=== PATIENT | female | born 1970 ===

== ENCOUNTER 2024-05-01 19:22 | Emergency (ER) | payer BC, SELFPAY ==
[2024-05-01 19:25] VITALS: BP 169/92
[2024-05-01 19:47] LABS: % Basophils 0.5 % (0-2); % Eosinophils 1.1 % (0-6); % Immature Granulocytes 0.3 % (0-0.5); % Lymphocytes 39.2 % (20.5-51.1); % Monocytes 5.4 % (1.7-9.3); % Neutrophils 53.5 % (42.2-75.2); Absolute Eosinophils 0.1 10^3/uL (0-0.7); Absolute Lymphocytes 2.9 10^3/uL (1.2-3.4); Absolute Monocytes 0.4 10^3/uL (0.1-0.6); Hematocrit 41.9 % (37.0-47.0); Hemoglobin 14.7 g/dL (12.0-16.0); Mean Corp Hgb Conc. 35.1 g/dL (33.0-37.0); Mean Corpuscular Hgb 33.3 pg (27.0-31.0); Mean Corpuscular Volume 94.8 fL (81.0-99.0); Mean Platelet Volume 9.8 fL (7.4-10.4); Nucleated Red Blood Cells % 0 %; Platelet Count 229 10^3/uL (130-400); Red Blood Cell Count 4.42 10^6/uL (4.20-5.40); Red Cell Dist. Width 13.1 % (11.5-14.5); White Blood Cell Count 7.5 10^3/uL (4.8-10.8)
[2024-05-01 19:59] LABS: ALT (SGPT) 30 U/L (0-35); AST (SGOT) 36 U/L (14-36); Albumin 4.8 g/dl (3.5-5.0); Alkaline Phosphatase 88 U/L (38-126); Blood Urea Nitrogen 17 mg/dl (7-17); Calcium 10.1 mg/dl (8.4-10.2); Carbon Dioxide 24 mmol/L (22-30); Chloride 107 mmol/L (98-107); Glucose 119 mg/dl (70-99); Potassium 4.1 mmol/L (3.5-5.1); Sodium 140 mmol/L (135-145); Total Bilirubin 0.8 mg/dl (0.2-1.3); Total Protein 7.5 g/dl (6.3-8.2); eGFR > 60.00
[2024-05-01 20:04] VITALS: BP 118/74
[2024-05-01 20:10] LABS: Troponin I < 0.012 ng/ml
--- NOTE | 2024-05-01 20:35 | ED.GENMED ---
History of Present Illness
General
Chief Complaint: Chest Pain
Source: patient
Time Seen by Provider: 05/01/24 20:24
History of Present Illness
History of Present Illness:
53-year-old female presents to the emergency room complaining of episodic chest pain that has been occurring over the past couple days. Patient states the pain occurs spontaneously and is not related to exertion. It is located in the left upper
chest. It last about 5 minutes when it occurs. It goes away spontaneously without any intervention. She denies any associated diaphoresis or shortness of breath. She may have some mild nausea with it. Patient denies any cardiac history. She
smokes marijuana (has marijuana card for anxiety and depression and insomnia) but does not smoke tobacco. Pain is not pleuritic in nature.
Phy Exam
Physical Exam
Physical Exam:
General: Awake, Alert, Oriented X3. No acute distress.
Vitals: unremarkable
Head: Atraumatic
Eyes: Pupils equal, EOMI
Throat: Airway intact, no exudates
Neck: Trachea midline
Lungs: Clear and equal b/l
Heart: Regular rate, no murmurs
Abd: Soft, Nontender, No pulsatile mass
Neuro: Nonfocal
Skin: Warm, dry, no rash
Extremities: pulses equal b/l, no edema
Scores
Heart Score for Chest Pain Patients
STEMI patient?: No
History: Moderately Suspicious
ECG: Normal
Age: >45 - <65 years
Risk Factors: 1 or 2 Risk Factors
Troponin: </= Normal Limit
Heart Score for Chest Pain Patients: 3
Heart Score Risk: 2.5% MACE over next 6 weeks
Course
Orders/Labs/Results
Orders:
Orders
05/01/24 19:23
EKG [Electrocardiogram (*1)] Urgent
Reason for Study: Chest Pain
EKG- Treatment ONCE
05/01/24 19:35
Complete Blood Count/With Diff Urgent
Comprehensive Metabolic Panel Urgent
Troponin I Urgent
05/01/24 20:38
CR Chest - 2 Views Urgent
Comment:
Reason For Exam: chest pain
05/01/24 21:36
Troponin I Urgent
Abnormal Lab Results
05/01/24
19:35
MCH 33.3 H pg
(27.0-31.0)
Glucose 119 H mg/dl
(70-99)
05/01/24 19:35
05/01/24 19:35
Vital Signs
Initial and Last Documented VS:
Initial Vital Signs
Temp Pulse Resp BP Pulse Ox
98.1 F 73 18 169/92 98
05/01/24 19:25 05/01/24 19:25 05/01/24 19:25 05/01/24 19:25 05/01/24 19:25
Last Documented Vital Signs
Temp Pulse Resp BP Pulse Ox
98.1 F 61 23 106/61 97
05/01/24 19:25 05/01/24 22:30 05/01/24 22:30 05/01/24 22:00 05/01/24 22:30
MDM/Problems Addressed
Differential Diagnosis Includes:
OT appointment today, NSTEMI, chest wall pain, pneumothorax
MDM/Problems Addressed:
Patient presents with intermittent chest pain. Troponin is negative x 2. Remaining labs are all unremarkable. Chest x-ray shows no acute abnormality. EKG shows no acute ischemic changes. Patient is stable for discharge home and outpatient
follow-up. Placed on the chest pain hotline for CBC.
*Radiology
Radiology exam reviewed: preliminary read by ED provider (No acute abnormalities on my review of the patient's chest x-ray)
*Pulse Oximetry
Patient hypoxic: no
*EKG
Interpreted by ED Provider?: Yes
Interpretation: normal
Heart Rate: 65
Rate: normal
Rhythm: sinus
[place]: normal axis
Interval: normal interval
QRS Pattern: normal QRS
Ischemia: no ischemia
*Vein Access Technician Interpretation
Rate: normal
Interpretation: normal
Heart Rate: 65
Rhythm: sinus
*Critical Care Note
Total Time (30-74mins, 75-104mins- exclusive of procedures): Not Applicable
ED Attending Note
-
Portions of this chart may have been created with voice recognition software.� Occasional wrong word or��sound alike� substitutions may have occurred due to the inherent limitations of voice recognition software.
Discharge Plan
Departure
Patient Disposition: Home (Routine Discharge)
Date of Disposition: 05/01/24
Time of Disposition: 23:10
Patient with high blood pressure during this ER visit?: No
Condition: Good
Discharge Problem:
Chest pain
Instructions: Chest Pain CBC Follow Up
Referrals:
Maria E Terrazas CRNP [Family Provider] -
Activity Restrictions/Additional Instructions:
You should receive a call from the cardiology office to arrange a follow up appointment. Take a baby aspirin a day until you see them. Return to the ER if your symptoms seem to be getting worse.
Interventions
Interventions:
*Risk Screen - Suicide Last Done: 05/01/24 19:25
*General Assessment Last Done: 05/01/24 19:25
*Neglect/Abuse Screening Last Done: 05/01/24 19:25
*ED- Fall Risk Assessment Last Done: 05/01/24 19:25
*ED COVID-19 Vaccine History Last Done: 05/01/24 19:25
*Nursing Disposition Last Done: 05/01/24 23:29
ED- Cardiac Assessment Last Done: 05/01/24 20:36
Discharge Date and Time
Discharge Date/Time: 05/01/24 23:30
Print Language: MALIAN
[2024-05-01 20:36] VITALS: BMI 29.9
[2024-05-01 21:40] VITALS: BP 131/106
[2024-05-01 22:00] VITALS: BP 106/61
[2024-05-01 22:16] LABS: Troponin I < 0.012 ng/ml
== END 2024-05-01 23:30 | disposition home or self-care (01) ==
LOC: EMR 19:22
PROVIDERS: EMERGENCY PHYSICIAN Emergency Medicine; FAMILY PHYSICIAN Nurse Practitioner Family
DX: R07.89 Other chest pain (principal); F12.90 Cannabis use, unspecified, uncomplicated; F41.9 Anxiety disorder, unspecified; G47.00 Insomnia, unspecified
CPT/HCPCS: 99283; 71046; 80053; 84484; 85025; 93005